=== PATIENT | male | born 1995 | race Caucasian/White ===

== ENCOUNTER 2025-03-09 17:59 | Emergency (ER) | payer MEDICAID, OTHER ==
[~2025-03-09] VITALS: Ht 177.8 cm; Wt 73.0 kg
[2025-03-09 18:01] VITALS: O2SAT 100
[2025-03-09] MEDS ORDERED: IBUP-2028 MT (18:27)
[2025-03-09 18:56] VITALS: BP 118/73; PULSE 81; RESP 18; TEMP 36.7; O2SAT 100
== END 2025-03-09 18:56 | disposition home or self-care (01) ==
LOC: ER 17:59
DX: M79.641 Pain in right hand (principal); I10 Essential (primary) hypertension; Z90.49 Acquired absence of other specified parts of digestive tract
CPT/HCPCS: 99283; 73130; A6449